=== PATIENT | female | born 1995 | race Caucasian/White ===

== ENCOUNTER 2018-04-15 22:56 | Emergency (ER) | payer SELFPAY ==
[~2018-04-15] VITALS: Ht 157.5 cm; Wt 56.8 kg
[2018-04-15 22:59] VITALS: BP 125/80
== END 2018-04-16 02:10 | disposition left against medical advice (07) ==
LOC: ER 23:06
DX: F10.129 Alcohol abuse with intoxication, unspecified (principal); Z53.21 Procedure and treatment not carried out due to patient leaving prior to being seen by health care provider